=== PATIENT | male | born 1955 | race Caucasian/White ===

== ENCOUNTER 2021-12-20 19:21 | Emergency (ER) | payer OTHER ==
--- NOTE | 2021-12-20 19:55 | RAD REPORT ---
EXAM DESCRIPTION: RAD - Tib Fib Right - 12/20/2021 7:45 pm CLINICAL HISTORY: possible open fracture COMPARISON: No comparisons FINDINGS: Moderately displaced oblique fracture distal tibia with a butterfly fragment. Mildly displ aced fracture proximal fibular neck as well.
[2021-12-20] MEDS ORDERED: MORPHINE 4 MG/ML SYR ONE ×2 (19:56→21:01)
[2021-12-20] MEDS ORDERED: CEFAZOLIN SODIUM 1 GM/VIAL ONE (19:56)
[2021-12-20] MEDS ORDERED: ONDANSETRON 4 MG/2 ML VIAL ONE (19:56)
[2021-12-20 19:57] LABS: Absolute Lymphocytes (CBC) 1.6 K/uL (0.7-4.9); Hematocrit 41.5 % (39.6-49.0); Lymphocytes % 19.2 % (15.3-44.8); MPV 7.7 fL (7.6-11.3); RBC Red Blood Cell Count 4.14 M/uL (4.33-5.43)
[2021-12-20] MEDS ORDERED: NA CHLORIDE 0.9% 100 ML IV ONE (19:57)
[2021-12-20] MEDS ORDERED: TETANUS & DIPHTHERIA TOX,ADULT 0.5 ML VIAL ONE (19:57)
[2021-12-20 20:02] LABS: Protime INR 0.92
--- NOTE | 2021-12-20 20:02 | EDPHYS ---
Physician Documentation [facility] Name: Ludwig Nguyen Age: 66 yrs Sex: Male : 1955 Arrival Date: 12/20/2021 Time: 19:23 Bed 3 Private MD: ED Physician Teddy De Dios HPI: 12/20 19:27 This 66 yrs old Male presents to ER via Unassigned with complaints of Fall Injury, leg rn injury. 19:27 Details of fall: The patient fell from a height. Onset: The symptoms/episode rn began/occurred just prior to arrival. Associated injuries: The patient sustained right leg. Severity of symptoms: At their worst the symptoms were moderate, in the emergency department the symptoms have improved. The patient has not experienced similar symptoms in the past. The patient has not recently seen a physician. Pt reports had a few beers, walking down steep stairs, slipped, isolated injury to right lower leg, unable to stand on that leg after fall, reports "foot moving on its own", denies other injuries. No head injury, no back pain, no chest or abd pain. No hip pain. Last tetanus > 5 years ago. No blood thinners. . Historical: - Allergies: 19:38 No Known Allergies; jb4 - PMHx: 19:38 High cholesterol; HTN; jb4 - Immunization history: Last tetanus immunization: unknown. - Social history:: Smoking status: Patient/guardian denies using tobacco, the patient reports quitting approximately 25 years ago. - Family history:: not pertinent. - Hospitalizations: : No recent hospitalization is reported. ROS: 19:27 Constitutional: Negative for fever, chills, and weight loss, Eyes: Negative for injury, rn pain, redness, and discharge, Neck: Negative for injury, pain, and swelling, Cardiovascular: Negative for chest pain, palpitations, and edema, Respiratory: Negative for shortness of breath, cough, wheezing, and pleuritic chest pain, Abdomen/GI: Negative for abdominal pain, nausea, vomiting, diarrhea, and constipation, Back: Negative for injury and pain, MS/Extremity: + injury and deformity to right lower leg Skin: + puncture wound to RLE Neuro: Negative for headache, weakness, numbness, tingling, and seizure. Exam: 19:27 Constitutional: This is a well developed, well nourished patient who is awake, alert, rn and in no acute distress. Head/Face: Normocephalic, atraumatic. Eyes: Pupils equal round and reactive to light, extra-ocular motions intact. Lids and lashes normal. Conjunctiva and sclera are non-icteric and not injected. Cornea within normal limits. Periorbital areas with no swelling, redness, or edema. Neck: Trachea midline, no thyromegaly or masses palpated, and no cervical lymphadenopathy. Supple, full range of motion without nuchal rigidity, or vertebral point tenderness. No Meningismus. Chest/axilla: Normal chest wall appearance and motion. Nontender with no deformity. No lesions are appreciated. Cardiovascular: Regular rate and rhythm. No pulse deficits. Respiratory: No increased work of breathing, no retractions or nasal flaring. Abdomen/GI: Soft, non-tender Back: No spinal tenderness. No costovertebral tenderness. Full range of motion. Skin: Warm, dry MS/ Extremity: Pulses equal, no cyanosis. NV intact. + right distal tib/fib with small subcentimeter puncture wound anterior to tibia with depression and tenderness at that site. Distal pulses equal and strong. Neuro: Awake and alert, GCS 15, oriented to person, place, time, and situation. Cranial nerves II-XII grossly intact. Motor strength 5/5 in all extremities. Sensory grossly intact. Vital Signs: 19:28 BP 146 / 80; Pulse 79; Resp 16; Temp 98.4(TE); Pulse Ox 97% on R/A; Weight 93.44 kg jb4 (R); Height 5 ft. 7 in. (170.18 cm) (R); 20:28 BP 128 / 76; Pulse 72; Resp 16; Pulse Ox 97% on R/A; jb4 21:28 BP 115 / 69; Pulse 66; Resp 16; Pulse Ox 95% on R/A; jb4 22:28 BP 125 / 76; Pulse 64; Resp 16; Pulse Ox 97% on R/A; jb4 23:05 BP 125 / 77; Pulse 66; Resp 18; Pulse Ox 98% on R/A; jb4 19:28 Body Mass Index 32.26 (93.44 kg, 170.18 cm) jb4 Hampton Coma Score: 19:28 Eye Response: spontaneous(4). Verbal Response: oriented(5). Motor Response: obeys jb4 commands(6). Total: 15. 20:28 Eye Response: spontaneous(4). Verbal Response: oriented(5). Motor Response: obeys jb4 commands(6). Total: 15. 21:28 Eye Response: spontaneous(4). Verbal Response: oriented(5). Motor Response: obeys jb4 commands(6). Total: 15. 22:28 Eye Response: spontaneous(4). Verbal Response: oriented(5). Motor Response: obeys jb4 commands(6). Total: 15. 23:05 Eye Response: spontaneous(4). Verbal Response: oriented(5). Motor Response: obeys jb4 commands(6). Total: 15. Trauma Score (Adult): 19:28 Eye Response: spontaneous(1); Verbal Response: oriented(1); Motor Response: obeys jb4 commands(2); Systolic BP: > 89 mm Hg(4); Respiratory Rate: 10 to 29 per min(4); Hampton Score: 15; Trauma Score: 12 20:28 Eye Response: spontaneous(1); Verbal Response: oriented(1); Motor Response: obeys jb4 commands(2); Systolic BP: > 89 mm Hg(4); Respiratory Rate: 10 to 29 per min(4); Hampton Score: 15; Trauma Score: 12 21:28 Eye Response: spontaneous(1); Verbal Response: oriented(1); Motor Response: obeys jb4 commands(2); Systolic BP: > 89 mm Hg(4); Respiratory Rate: 10 to 29 per min(4); Hampton Score: 15; Trauma Score: 12 22:28 Eye Response: spontaneous(1); Verbal Response: oriented(1); Motor Response: obeys jb4 commands(2); Systolic BP: > 89 mm Hg(4); Respiratory Rate: 10 to 29 per min(4); Robles Score: 15; Trauma Score: 12 23:05 Eye Response: spontaneous(1); Verbal Response: oriented(1); Motor Response: obeys jb4 commands(2); Systolic BP: > 89 mm Hg(4); Respiratory Rate: 10 to 29 per min(4); Robles Score: 15; Trauma Score: 12 MDM: 19:24 Patient medically screened. rn 19:50 Differential diagnosis: fracture, open fracture. Data reviewed: vital signs, nurses rn notes, radiologic studies, plain films, and as a result, I will admit patient. Counseling: I had a detailed discussion with the patient and/or guardian regarding: the historical points, exam findings, and any diagnostic results supporting the discharge/admit diagnosis, radiology results, the need for further work-up and treatment in the hospital. Response to treatment: the patient's symptoms have mildly improved after treatment, and as a result, I will admit patient. Admission orders: after a detailed discussion of the patient's condition and case, the admit orders are written by me. ED course: Pt with open tibia fracture, Dr. Johnson in OR, dye house hand going to consult him in OR. . 20:00 ED course: Dr. Johnson requests transfer, states unable to take care of it here. rn Initiated transfer to [facility] for ortho.. 21:29 ED course: [facility] still has not returned phone call regarding transfer. . rn 22:02 ED course: Called [facility] transfer center back, now at 2 hour aren waiting, no rn indication when they are going to call back and now not answering our phone calls. Initiating transfer to [facility] for more expedited care for this open tibia fracture. Wound has been irrigated and dressed, abx given, tetanus updated. Pt much more comfortable with splint.. 22:14 ED course: [facility] Accepts without consult, < 10 minute total transfer time rn for acceptance.. 12/20 19:24 Order name: CBC with Diff; Complete Time: 20:03 rn 12/20 19:24 Order name: Basic Metabolic Panel; Complete Time: 20:31 rn 12/20 19:24 Order name: Protime (+inr); Complete Time: 20:03 rn 12/20 19:24 Order name: Ptt, Activated; Complete Time: 20:03 rn 12/20 19:24 Order name: XRAY Tib Fib RIGHT; Complete Time: 20:03 rn 12/20 19:24 Order name: IV Start; Complete Time: 19:41 rn 12/20 19:24 Order name: NPO; Complete Time: 20:23 rn 12/20 20:37 Order name: Splint; Complete Time: 20:50 rn Administered Medications: 19:50 Drug: morphine 4 mg Route: IVP; Site: right antecubital; jb4 20:30 Follow up: Response: No adverse reaction; Marked relief of symptoms jb4 19:50 Drug: Zofran (Ondansetron) 4 mg Route: IVP; Site: right antecubital; jb4 20:30 Follow up: Response: No adverse reaction; Marked relief of symptoms jb4 19:55 Drug: Ancef (cefazolin) 2 grams Route: IVPB; Infused Over: 30 mins; Site: right jb4 antecubital; 20:25 Follow up: Response: No adverse reaction; IV Status: Completed infusion; IV Intake: jb4 100ml 19:55 Drug: Tetanus Toxoid,Adsorbed 0.5 ml {[employer]: [id number]. Exp: 10/13/2023. Lot jb4 #: [id number]. } Route: IM; Site: right deltoid; 20:30 Follow up: Response: No adverse reaction; Marked relief of symptoms jb4 21:00 Drug: morphine 4 mg Route: IVP; Site: right antecubital; jb4 21:30 Follow up: Response: No adverse reaction; Marked relief of symptoms; Pain is decreased jb4 23:25 Drug: Dilaudid (HYDROmorphone) 1 mg Route: IVP; Site: right antecubital; jb4 23:29 Follow up: Response: Medication administered at discharge. jb4 Disposition Summary: 12/20/21 20:01 Transfer Ordered Reason: Higher level of care rn Condition: Stable rn Problem: new rn Symptoms: have improved rn ccu Location: [facility](12/20/21 22:15) rn Accepting Physician: (12/20/21 23:34) jb4 Diagnosis - Displaced comminuted fracture of shaft of right tibia, initial encounter for open rn fracture type I or II Forms: - Medication Reconciliation Form rn - SBAR form rn Signatures: Dispatcher [employer] EDTeddy Tompkins MD MD rn Bryson, James, RN RN jb4 Corrections: (The following items were deleted from the chart) 22:15 20:01 Dr. tom rn 22:15 20:01 [facility] rn rn 23:34 22:15 Dr. tom jb4
--- NOTE | 2021-12-20 20:02 | ER ---
Nurse's Notes [facility] Name: Ludwig Nguyen Age: 66 yrs Sex: Male : 1955 Arrival Date: 12/20/2021 Time: 19:23 Bed 3 Private MD: Diagnosis: Displaced comminuted fracture of shaft of right tibia, initial encounter for open fracture type I or II Presentation: 12/20 19:28 Chief complaint: EMS states: Pt is visiting from [place] [facility]. He was at a local bar and jb4 fell down about 10 stairs. Denies LOC or head injury. We suspect an open fracture to the right leg. He was given 100mcg of Fentanyl via 20g to the right AC. Pulses are strong in the right foot. Care prior to arrival: Medication(s) given: Fentanyl 100mcg. Mechanism of Injury: Fall down 10 steps. Trauma event details: Injury occurred in the [facility]. 19:28 Acuity: FÉLIX 2 4 19:28 Method Of Arrival: Ambulatory [facility] 19:38 Coronavirus screen: At this time, the client does not indicate any symptoms associated jb4 with coronavirus-19. Ebola Screen: No symptoms or risks identified at this time. Initial Sepsis Screen: Does the patient meet any 2 criteria? No. Patient's initial sepsis screen is negative. Does the patient have a suspected source of infection? No. Patient's initial sepsis screen is negative. Risk Assessment: Do you want to hurt yourself or someone else? Patient reports no desire to harm self or others. Onset of symptoms was December 20, 2021. Transition of care: patient was not received from another setting of care. Trauma Activation: Alert Physician: ED Physician; Name: Va; Notified At: 19:25; Arrived At: 19:25 Physician: General Surgeon; Name: ; Notified At: 19:25; Arrived At: Physician: Radiology; Name: ; Notified At: 19:25; Arrived At: Physician: Respiratory; Name: ; Notified At: 19:25; Arrived At: Physician: Lab; Name: ; Notified At: 19:25; Arrived At: Historical: - Allergies: 19:38 No Known Allergies; jb4 - PMHx: 19:38 High cholesterol; HTN; jb4 - Immunization history: Last tetanus immunization: unknown. - Social history:: Smoking status: Patient/guardian denies using tobacco, the patient reports quitting approximately 25 years ago. - Family history:: not pertinent. - Hospitalizations: : No recent hospitalization is reported. Screenin:28 Abuse screen: Denies threats or abuse. Nutritional screening: No deficits noted. jb4 Tuberculosis screening: No symptoms or risk factors identified. 19:30 Fall Risk None identified. jb4 Primary Survey: 19:28 NO uncontrolled hemorrhage observed. A: The client is awake and alert. The airway is jb4 patent. Breathing/Chest: Spontaneous respiratory effort, equal unlabored respirations, breath sounds clear bilaterally, regular pattern, symmetrical chest rise and fall. Circulation: No external hemorrhage present. Regular and strong central pulse, skin warm/dry/normal color. Disability Pupils are equal, round, reactive to light and accommodation. Client is alert. Exposure/Environment: All clothing and personal items were removed. Forensic evidence collection is not deemed to be indicated at this time. Items placed in patient belonging bag. Obvious injury(ies) are noted at this time: Laceration noted to the right lower lunsford. Abrasion just below the right knee. A warming method has been applied: A warm blanket has been provided to the patient. 20:30 Reassessment Alertness and Airway: Awake and alert. The airway is patent. Breathing: jb4 Spontaneous respiratory effort, equal unlabored respirations, breath sounds clear bilaterally, regular pattern with symmetrical chest rise and fall. Circulation: No external hemorrhage noted. Regular and strong central pulse, skin warm/dry/normal color. Disability: Alert. Assessment: 19:28 General: Appears in no apparent distress. comfortable, Behavior is calm, cooperative, jb4 appropriate for age. Pain: Complains of pain in right l[place] Pain does not radiate. Pain currently is 4 out of 10 on a pain scale. Neuro: Lozano Agitation-Sedation Scale (RASS): 0 - Alert and Calm Level of Consciousness is awake, alert, obeys commands, Oriented to person, place, time, situation. EENT: No signs and/or symptoms were reported regarding the EENT system. Cardiovascular: Patient's skin is warm and dry. Pulses are 3+ in right dorsalis pedis artery. Respiratory: Airway is patent Respiratory effort is even, unlabored, Respiratory pattern is regular, symmetrical. GI: No signs and/or symptoms were reported involving the gastrointestinal system. : No signs and/or symptoms were reported regarding the genitourinary system. Derm: Skin is intact, Skin is pink, warm \T\ dry. Musculoskeletal: Circulation, motion, and sensation intact. Capillary refill < 3 seconds, in right toes. Range of motion: intact in all extremities. Injury Description: Abrasion sustained to right knee Laceration sustained to right lunsford. 20:24 Reassessment: Patient appears in no apparent distress at this time. Patient and/or jb4 family updated on plan of care and expected duration. Pain level reassessed. Patient is alert, oriented x 3, equal unlabored respirations, skin warm/dry/pink. Wound irrigated, pressure bandage applied to open fracture. 21:30 Reassessment: Patient appears in no apparent distress at this time. Patient and/or jb4 family updated on plan of care and expected duration. Pain level reassessed. Patient is alert, oriented x 3, equal unlabored respirations, skin warm/dry/pink. 22:30 Reassessment: Patient appears in no apparent distress at this time. Patient and/or jb4 family updated on plan of care and expected duration. Pain level reassessed. Patient is alert, oriented x 3, equal unlabored respirations, skin warm/dry/pink. 23:30 Reassessment: Patient appears in no apparent distress at this time. Patient and/or jb4 family updated on plan of care and expected duration. Pain level reassessed. Patient is alert, oriented x 3, equal unlabored respirations, skin warm/dry/pink. 23:30 Cardiovascular: Pulses are 3+ in right dorsalis pedis artery. Musculoskeletal: jb4 Circulation, motion, and sensation intact. Capillary refill < 3 seconds, in right toes. Range of motion: intact in all extremities. Vital Signs: 19:28 BP 146 / 80; Pulse 79; Resp 16; Temp 98.4(TE); Pulse Ox 97% on R/A; Weight 93.44 kg jb4 (R); Height 5 ft. 7 in. (170.18 cm) (R); 20:28 BP 128 / 76; Pulse 72; Resp 16; Pulse Ox 97% on R/A; jb4 21:28 BP 115 / 69; Pulse 66; Resp 16; Pulse Ox 95% on R/A; jb4 22:28 BP 125 / 76; Pulse 64; Resp 16; Pulse Ox 97% on R/A; jb4 23:05 BP 125 / 77; Pulse 66; Resp 18; Pulse Ox 98% on R/A; jb4 19:28 Body Mass Index 32.26 (93.44 kg, 170.18 cm) jb4 Robles Coma Score: 19:28 Eye Response: spontaneous(4). Verbal Response: oriented(5). Motor Response: obeys jb4 commands(6). Total: 15. 20:28 Eye Response: spontaneous(4). Verbal Response: oriented(5). Motor Response: obeys jb4 commands(6). Total: 15. 21:28 Eye Response: spontaneous(4). Verbal Response: oriented(5). Motor Response: obeys jb4 commands(6). Total: 15. 22:28 Eye Response: spontaneous(4). Verbal Response: oriented(5). Motor Response: obeys jb4 commands(6). Total: 15. 23:05 Eye Response: spontaneous(4). Verbal Response: oriented(5). Motor Response: obeys jb4 commands(6). Total: 15. Trauma Score (Adult): 19:28 Eye Response: spontaneous(1); Verbal Response: oriented(1); Motor Response: obeys jb4 commands(2); Systolic BP: > 89 mm Hg(4); Respiratory Rate: 10 to 29 per min(4); Cylinder Score: 15; Trauma Score: 12 20:28 Eye Response: spontaneous(1); Verbal Response: oriented(1); Motor Response: obeys jb4 commands(2); Systolic BP: > 89 mm Hg(4); Respiratory Rate: 10 to 29 per min(4); Robles Score: 15; Trauma Score: 12 21:28 Eye Response: spontaneous(1); Verbal Response: oriented(1); Motor Response: obeys jb4 commands(2); Systolic BP: > 89 mm Hg(4); Respiratory Rate: 10 to 29 per min(4); Robles Score: 15; Trauma Score: 12 22:28 Eye Response: spontaneous(1); Verbal Response: oriented(1); Motor Response: obeys jb4 commands(2); Systolic BP: > 89 mm Hg(4); Respiratory Rate: 10 to 29 per min(4); Cylinder Score: 15; Trauma Score: 12 23:05 Eye Response: spontaneous(1); Verbal Response: oriented(1); Motor Response: obeys jb4 commands(2); Systolic BP: > 89 mm Hg(4); Respiratory Rate: 10 to 29 per min(4); Cylinder Score: 15; Trauma Score: 12 ED Course: 19:23 Patient arrived in ED. tw5 19:24 Teddy De Dios MD is Attending Physician. rn 19:28 Aubrey Feliciano RN is Primary Nurse. jb4 19:30 Patient maintains SpO2 saturation greater than 95% on room air. Thermoregulation: warm jb4 blanket given to patient. 19:32 Triage completed. jb4 19:38 Arm band placed on right wrist. jb4 19:46 XRAY Tib Fib RIGHT In Process Unspecified. EDMS 20:30 Patient has correct armband on for positive identification. Bed in low position. Call jb4 light in reach. Side rails up X 1. 20:36 Initiated call for transfer to [facility]. wm 21:54 2nd attempt to initiate a transfer due to time of waiting on a call back for wm acceptance. Talked to Alina Malin as the online marketing coordinator with [facility]. 22:12 Pt. was accepted at [facility]. Accepting Dr is Dania Collazo. wm 23:28 Assist provider with bone marrow aspiration. Patient transferred, IV remains in place. jb4 Administered Medications: 19:50 Drug: morphine 4 mg Route: IVP; Site: right antecubital; jb4 20:30 Follow up: Response: No adverse reaction; Marked relief of symptoms jb4 19:50 Drug: Zofran (Ondansetron) 4 mg Route: IVP; Site: right antecubital; jb4 20:30 Follow up: Response: No adverse reaction; Marked relief of symptoms jb4 19:55 Drug: Ancef (cefazolin) 2 grams Route: IVPB; Infused Over: 30 mins; Site: right jb4 antecubital; 20:25 Follow up: Response: No adverse reaction; IV Status: Completed infusion; IV Intake: jb4 100ml 19:55 Drug: Tetanus Toxoid,Adsorbed 0.5 ml {Ruling [employer]: [employer]. Exp: 10/13/2023. Lot jb4 #: [id number]. } Route: IM; Site: right deltoid; 20:30 Follow up: Response: No adverse reaction; Marked relief of symptoms jb4 21:00 Drug: morphine 4 mg Route: IVP; Site: right antecubital; jb4 21:30 Follow up: Response: No adverse reaction; Marked relief of symptoms; Pain is decreased jb4 23:25 Drug: Dilaudid (HYDROmorphone) 1 mg Route: IVP; Site: right antecubital; jb4 23:29 Follow up: Response: Medication administered at discharge. jb4 Medication: 23:28 Vaccine Information Statement (VIS) provided today. Questions and/or concerns jb4 addressed. VIS edition date: March 09, 2021. Intake: 20:25 IV: 100ml; Total: 100ml. jb4 20:30 PO: 0ml; Total: 100ml. jb4 Output: 20:30 Urine: 600ml (Voided); Total: 600ml. jb4 Outcome: 20:01 ER care complete, transfer ordered by . rn 23:28 Transferred by [facility]. to [facility], Transfer form completed. jb4 X-rays sent w/ patient. 23:28 Condition: stable 23:28 Discharge instructions given to patient, Instructed on the need for transfer, Demonstrated understanding of instructions. 23:28 Patient's length of stay in the Emergency Department was greater than 2 hours. Pt transferred.Patient's length of stay extended due to 23:34 Patient left the ED. jb4 Signatures: Dispatcher [employer] EDMS Teddy De Dios MD MD rn Bryson, James, RN RN jb4 Araceli Caballero Tiffany tw5 Corrections: (The following items were deleted from the chart) 19:38 19:28 Injury Description: Puncture sustained to right lunsford jb4 jb4 19:38 19:28 Exposure/Environment: All clothing and personal items were removed. Forensic jb4 evidence collection is not deemed to be indicated at this time. Items placed in patient belonging bag. Obvious injury(ies) are noted at this time: Laceration noted to the right lower lunsford. A warming method has been applied: A warm blanket has been provided to the patient. jb4 12/21 05:58 12/20 21:54 2nd attempt to initiate a transfer due to time of waiting on a call back for acceptance. Talked to Alina Malin as the online marketing coordinator.
[2021-12-20 20:10] LABS: Potassium 3.6 mmol/L (3.5-5.1)
[2021-12-20] MEDS ORDERED: HYDROMORPHONE HCL 1 MG/ML INJ ONE (23:27)
[2021-12-20 23:42] VITALS: TEMP 98.4
[2021-12-20 23:49] VITALS: BP 125/77; O2SAT 98
== END 2021-12-20 23:34 | disposition short-term general hospital (02) ==
LOC: ER 19:21
DX: S82.251B Displaced comminuted fracture of shaft of right tibia, initial encounter for open fracture type I or II (principal); W10.9XXA Fall (on) (from) unspecified stairs and steps, initial encounter; Y93.01 Activity, walking, marching and hiking; Z23 Encounter for immunization; E78.00 Pure hypercholesterolemia, unspecified; I10 Essential (primary) hypertension
CPT/HCPCS: 96365; 85025; 80048; 36415; 85610; 85730; 73590; 90471; 90714; 96375; 99285; J1170; J2405; J0690